=== PATIENT | female | born 1950 | race Caucasian/White ===

== ENCOUNTER → 2017-04-21 | Outpatient (CLI) | payer MEDICARE, OTHER ==
[~2017-04-21] MED LIST: ALBU90OI INH; ANTOXYBENA BOTHEARS; ASCO500 PO; ASPI81CH PO; ATOR20 PO; Antivert25 MG PO; Ativan1 MG SL; Augmentin 875-1 EACH PO; BENZ100A PO; Budeprion Sr150 MG PO; CALCI-CHEW PO; CHOL10002 PO; CITA20 PO; CYAN1000; DIPATR PO; HYDCHL25 PO; Hair, Skin & N1 EACH PO; Hytrin2 MG PO; LISI20 PO; LORA1 PO; LOSA25 PO; MECL25 PO; METO25ER PO; Multivitamin1 EAC1 PO; ONDA8 PO; OXYC15ER PO; Omeprazole Dr 40 Mg PO; Omeprazole20 M1 PO; PROM25 PO; Protonix40 MG PO; RANI150 PO; SPIR25 PO; TORSE20 PO; TRIHYD253A PO; TYLENOL PM; VITAMIN B122500 MC1 IM; Zofran Odt4 MG SL
[2017-04-23 15:23] LABS: HPV Genotype 16 Not Detected (NOTDET); HPV Genotype 18 Not Detected (NOTDET)
[2017-05-01 13:18] LABS: HPV High Risk Other Detected (NOTDET)
== END | disposition home or self-care (01) ==
LOC: LAB 14:40
PROVIDERS: Physician Assistant
DX: Z01.419 Encounter for gynecological examination (general) (routine) without abnormal findings (principal)
CPT/HCPCS: 87624; G0145

== ENCOUNTER 2017-08-20 08:58 | Emergency (ER) | payer MEDICARE, OTHER ==
[~2017-08-20] VITALS: Ht 180.3 cm; Wt 68.0 kg
[~2017-08-20 08:58] MED LIST changes: -ALBU90OI INH; -ATOR20 PO; -Budeprion Sr150 MG PO; -CALCI-CHEW PO; +CITA20; -CITA20 PO; -Hair, Skin & N1 EACH PO; -LOSA25 PO; -METO25ER PO; -Omeprazole Dr 40 Mg PO; -SPIR25 PO; -TORSE20 PO; -TYLENOL PM; -VITAMIN B122500 MC1 IM
[2017-08-20] MEDS ORDERED: Omeprazole Dr 40 Mg PO (09:38)
[2017-08-20] MEDS ORDERED: TYLENOL PM (09:39)
== END 2017-08-20 10:17 | disposition home or self-care (01) ==
LOC: ER 08:58
DX: S61.212A Laceration without foreign body of right middle finger without damage to nail, initial encounter (principal); W26.8XXA Contact with other sharp object(s), not elsewhere classified, initial encounter; Z79.899 Other long term (current) drug therapy; I10 Essential (primary) hypertension; Z87.891 Personal history of nicotine dependence

== ENCOUNTER 2017-08-20 16:02 | Emergency (ER) | payer MEDICARE ==
[~2017-08-20] VITALS: Ht 180.3 cm; Wt 68.0 kg
[~2017-08-20 16:02] MED LIST changes: +Omeprazole Dr 40 Mg PO; +TYLENOL PM
[2017-08-20 17:40] LABS: Calcium, Ionized (POC) 1.15 mmol/L (1.10-1.46); Chloride (POC) 101 mmol/L (98-108); Glucose (ISTAT POC) 132 mg/dL (70-99); Hemoglobin (POC) 12.2 g/dL (12.0-16.0); Potassium (POC) 4.2 mmol/L (3.5-5.5); Sodium (POC) 139 mmol/L (135-148); Total CO2 (POC) 28 mmol/L (21-32)
== END 2017-08-20 17:56 | disposition home or self-care (01) ==
LOC: ER 16:02
PROVIDERS: Emergency Medicine
DX: E16.2 Hypoglycemia, unspecified (principal); Z79.899 Other long term (current) drug therapy; I10 Essential (primary) hypertension; Z86.73 Personal history of transient ischemic attack (TIA), and cerebral infarction without residual deficits; Z87.891 Personal history of nicotine dependence
CPT/HCPCS: 80047; 82947; 85014; 93005; 93010

== ENCOUNTER 2017-11-28 07:03 | Day surgery (SDC) | payer MEDICARE, OTHER ==
[~2017-11-28] VITALS: Ht 175.3 cm; Wt 69.8 kg
[~2017-11-28 07:03] MED LIST changes: +ALBU90OI INH; +ATOR20 PO; +Budeprion Sr150 MG PO; +CALCI-CHEW PO; -CITA20; +CITA20 PO; +Hair, Skin & N1 EACH PO; +LOSA25 PO; +METO25ER PO; +SPIR25 PO; +TORSE20 PO; +VITAMIN B122500 MC1 IM
== END 2017-11-28 22:47 | disposition home or self-care (01) ==
LOC: ORSCMMR 07:03 → ORD 08:30 → ORSCMMR 22:47
PROVIDERS: Surgery
PROC: B5141ZA Fluoroscopy of Left Jugular Veins using Low Osmolar Contrast, Guidance (ICD-10-PCS; principal; 2017-11-28 09:30)
PROC: 05HN33Z Insertion of Infusion Device into Left Internal Jugular Vein, Percutaneous Approach (ICD-10-PCS; principal; 2017-11-28 09:30)
DX: C16.2 Malignant neoplasm of body of stomach (principal); C78.01 Secondary malignant neoplasm of right lung; J44.9 Chronic obstructive pulmonary disease, unspecified; F17.210 Nicotine dependence, cigarettes, uncomplicated; E78.5 Hyperlipidemia, unspecified; I10 Essential (primary) hypertension; I48.91 Unspecified atrial fibrillation; I25.10 Atherosclerotic heart disease of native coronary artery without angina pectoris; Z86.73 Personal history of transient ischemic attack (TIA), and cerebral infarction without residual deficits; Z79.899 Other long term (current) drug therapy
CPT/HCPCS: 77001; C1788; J0690; J1100; J1642; J2250; J2405; J3010; J7120

== ENCOUNTER → 2018-05-07 | Outpatient (CLI) | payer MEDICARE, OTHER ==
[2018-05-11 15:07] LABS: HPV 16 Negative (Negative); HPV 18 Negative (Negative); HPV OTHER HR TYPES Positive (Negative)
== END ==
LOC: LAB SHORT 19:37 → LAB 19:37
PROVIDERS: Nurse Practitioner Family
DX: Z01.419 Encounter for gynecological examination (general) (routine) without abnormal findings (principal)
CPT/HCPCS: 87624; G0145